=== PATIENT | female | born 1960 | race Caucasian/White ===

== ENCOUNTER 2022-04-16 15:36 | Emergency (ER) | payer SELFPAY ==
--- NOTE | 2022-04-16 16:10 | NUR ---
[id number]. NO SHOW
--- NOTE | 2022-04-16 16:57 | NUR ---
left before triage
== END 2022-04-16 16:10 | disposition left against medical advice (07) ==
LOC: MED 15:36
DX: K08.89 Other specified disorders of teeth and supporting structures (principal); Z53.21 Procedure and treatment not carried out due to patient leaving prior to being seen by health care provider

== ENCOUNTER 2022-08-01 11:36 | Emergency (ER) | payer SELFPAY ==
[~2022-08-01] VITALS: Ht 162.6 cm; Wt 81.6 kg
[2022-08-01 12:23] VITALS: BP 132/71
--- NOTE | 2022-08-01 12:29 | NUR ---
ABDOMINAL PAIN WITH BLOOD NOTED IN STOOLS (02/14) X 3 DAYS, WITH BLOODY URINE, FLANK PAIN, NAUSEA. NO RECENT TRAVEL, NO SICK CONTACTS. DENIES FEVERS. PMH: DM, HIGH CHOLESTEROL
[2022-08-01 13:24] LABS: APPEARANCE,URINE CLEAR (CLEAR); BILIRUBIN,URINE NEGATIVE (NEGATIVE); BLOOD, URINE TRACE-I (NEGATIVE); COLOR,URINE YELLOW (YELLOW); LEUKOCYTE ESTERASE ,URINE TRACE (NEGATIVE); NITRITE, URINE NEGATIVE (NEGATIVE); UGLUCOSE NEGATIVE (NEGATIVE)
[2022-08-01 14:28] LABS: BASOPHILS # (AUTO) 0.1 K/uL (0.00-0.22); BASOPHILS % (AUTO) 1.2 % (0.0-2.0); EOSINOPHILS # (AUTO) 0.3 K/uL (0-0.4); EOSINOPHILS % (AUTO) 2.6 % (0.0-4.0); HEMATOCRIT 40.1 % (36-48); HEMOGLOBIN 13.4 g/dL (12.0-16.0); LYMPHOCYTES # (AUTO) 3.7 K/uL (2.5-16.5); LYMPHOCYTES % (AUTO) 34.9 % (20.5-51.1); MEAN CORPUSCULAR HEMOGLOBIN 30 pg (27-31); MEAN CORPUSCULAR HGB CONC 33 g/dL (33-37); MEAN CORPUSCULAR VOLUME 88.9 fL (80-94); MONOCYTES # (AUTO) 0.6 K/uL (0.8-1.0); MONOCYTES % (AUTO) 5.4 % (1.7-9.3); NEUTROPHILS # (AUTO) 5.9 K/uL (1.8-7.7); NEUTROPHILS % (AUTO) 55.9 % (42.2-75.2); PLATELET COUNT (AUTO) 263 K/uL (140-450); RED BLOOD CELL COUNT(AUTO) 4.52 MIL/uL (4.20-5.40); RED CELL DISTRIBUTION WIDTH 14.1 % (11.6-13.7); WHITE BLOOD COUNT (AUTO) 10.6 K/uL (4.8-10.8)
[2022-08-01 14:55] LABS: ALBUMIN 3.7 g/dL (3.4-5.0); ANION GAP 13.1 (8-16); CARBON DIOXIDE 28.2 mmol/L (21-32); CREATININE 0.6 mg/dL (0.6-1.3); POTASSIUM 4.3 mmol/L (3.5-5.1); TOTAL BILIRUBIN 0.3 mg/dL (0.0-1.0)
[2022-08-01] MEDS ORDERED: ONDA-188 SL (18:25)
[2022-08-01] MEDS ORDERED: IBUP-2213 PO (18:25)
[2022-08-01] MEDS ORDERED: OMEP20EC11 PO (18:38)
--- NOTE | 2022-08-01 19:04 | NUR ---
Patient discharged with v/s stable. Written and verbal after care instructions given and explained. Patient alert, oriented and verbalized understanding of instructions. Ambulatory with steady gait. All questions addressed prior to discharge. ID band removed. Patient advised to follow up with PMD. Rx of PRILOSEC, OMEPRAZOLE given. Patient educated on indication of medication including possible reaction and side effects. Opportunity to ask questions provided and answered.
[2022-08-01 19:05] VITALS: BP 125/69
== END 2022-08-01 19:04 | disposition home or self-care (01) ==
LOC: EDBD 11:36 → MED 11:36
DX: K29.70 Gastritis, unspecified, without bleeding (principal); R19.7 Diarrhea, unspecified; E11.9 Type 2 diabetes mellitus without complications; Z79.4 Long term (current) use of insulin; Z79.899 Other long term (current) drug therapy
CPT/HCPCS: 36415; 80053; 81003; 83690; 85025; 99284